=== PATIENT | male | born 1990 | race Caucasian/White ===

== ENCOUNTER → 2019-09-21 17:29 | Outpatient (CLI) | payer BC, SELFPAY ==
[2019-09-21 21:19] LABS: Semen Viscosity Stringy (Normal); Sperm Count 155 mil/mm3 (20-160); WBCs,Semen Negative
[2019-09-21 21:20] LABS: 3Hr Motility Quality Good Progression (Mod-Rapid); 3Hr Sperm Motility 60 % (50-60); Motility Quality Rapid Progression (Mod-Rapid); Sperm Morphology Normal (Normal); Sperm Motility 90 % (50-90)
== END ==
PROVIDERS: Visit Provider Obstetrics & Gynecology
DX: Z31.41 Encounter for fertility testing (principal)
CPT/HCPCS: 89320

== ENCOUNTER 2020-01-16 11:04 | Emergency (ER) | payer BC, SELFPAY ==
[2020-01-16 11:20] VITALS: BP 146/91; PULSE 93; RESP 20; TEMP 37.6; O2SAT 98; BMI 31.0
--- NOTE | 2020-01-16 11:40 | HMH.EDUTC ---
[facility] [place] Clinical Impression: Bronchitis Sinusitis Qualifiers: Sinusitis location: unspecified location Chronicity: acute Recurrence: non-recurrent Qualified Code(s): J01.90 - Acute sinusitis, unspecified Disposition: Home, Self-Care Condition on Discharge: Good Instructions: Sinusitis, DI for Sinusitis, Preventing the Spread of Coronavirus Discharge Instructions Additional Instructions: Drink plenty of fluids. Take tylenol for pain or fever. Take the medications as directed. Follow up with your regular doctor. GO TO THE ER FOR ANY WORSENING SYMPTOMS FOLLOW THE DIRECTIONS ON THE COVID-19 HAND OUT THAT WE GAVE YOU REGARDING SELF-ISOLATION UNTIL YOU KNOW YOUR COVID-19 RESULTS Prescriptions: Brompheniramine/Pseudoephed/Dm [Bromfed Dm Cough Syrup] 5 ml PO Q6HP PRN #240 syrup PRN Reason: Cough Transmission Status: Received by [facility] # Azithromycin [Z-Grayson 250mg Tab*] 250 mg PO UD DOSE PK #6 tab Transmission Status: Received by [facility] # Referrals: Filippo Young APRN [Primary Care Provider] - Forms: Work/School Release Time of Disposition: 12:10 Medical Decision Making - Medical Records Medical records reviewed: No: I reviewed the patient's medical records. - Raymundo Inquiry Pt receiving controlled substance: No Vital Signs: 01/16/20 11:20 01/16/20 12:12 Temperature 99.7 F H 99.7 F H Temperature Source Oral Pulse Rate 93 H Pulse Rate [Left Brachial] 93 H Respiratory Rate 20 20 Blood Pressure 146/91 H Blood Pressure [Left Arm] 146/91 H Blood Pressure Mean [Left Arm] 109 Blood Pressure Source [Left Arm] Automatic Cuff Blood Pressure Position [Left Arm] Sitting 02 Sat by Pulse Oximetry 98 Oxygen Delivery Method Room Air - Lab Data Lab Results 01/16/20 11:24: Influenza Type A Ag Negative, Influenza Type B Ag Negative 01/16/20 11:24: Strep Scn Rapid Clinic Negative Orders (Tests/Meds): ORDERS Category Date Time Status Strep Screen Confirmation Stat Micro 01/16/20 11:24 Received [facility] [place] H[place] - General Stated complaint: Sore throat, sinus congestion Time Seen by Provider: 01/16/20 11:40 Mode of Arrival: Ambulatory Source of Information: Patient Limitations: No Limitations Description of Symptoms (Recalled from Triage Doc. by RN): PATIENT C/O SORE THROAT, CONGESTION, WET COUGH, LOW-GRADE FEVER, AND NASAL DRAINAGE (YELLOW) X 2 DAYS HEENT Symptoms (Recalled from RN notes): Yes Resp Symptoms (Recalled from RN notes): Yes Skin Symptoms (Recalled from RN notes): No MS Symptoms (Recalled from RN notes): No Functional Status (Recalled from RN notes): WNL - History of Present Illness Provider Complaint: He c/o 2 days of cough and feeling bad. He state that last night he began to run a fever up to 100.6. He denies any known exposure to COVID-19. - Related Data Previous Rx's Medication Instructions Recorded naproxen 500 mg tablet 500 mg PO BID #60 tab 05/12/19 Azithromycin [Z-Grayson 250mg Tab*] 250 mg PO UD DOSE PK #6 tab 01/16/20 Brompheniramine/Pseudoephed/Dm 5 ml PO Q6HP PRN #240 syrup 01/16/20 [Bromfed Dm Cough Syrup] Allergies Allergy/AdvReac Type Severity Reaction Status Date / Time [facility] Allergy Verified 05/12/19 14:41 Penicillins Allergy Verified 05/12/19 14:41 Sulfa (Sulfonamide Allergy Verified 05/12/19 14:41 Antibiotics) - Worker's Comp Is this a Worker's Comp case?: No [facility] History - Hepatitis A Screen Drug use history?: No High risk sexual behaviors?: No History of sexually transmitted infection?: No Currently employed?: No Childcare worker?: No Do you have indoor plumbing?: Yes Do you have electricity?: Yes Attestation statement:: This patient has been screened for Hepatitis A risk factors. I have reviewed the patient's past medical history: Yes Comment: Kidney stones Other Surgeries: Yes: No Previous Surgery Amputation: No Fractures: No - Social H
[2020-01-16 12:12] VITALS: BP 146/91; PULSE 93; RESP 20; TEMP 37.6; O2SAT 98
--- NOTE | 2020-01-16 15:13 | PC.NURSE ---
PATIENT NOTIFIED OF POSITIVE COVID TEST AT THIS TIME
[2020-01-16 19:49] LABS: UTC Strep Screen (Rapid) Negative (Negative)
[2020-01-16 19:50] LABS: UTC Influenza A Antigen Negative (Negative)
[2020-01-16 19:51] LABS: UTC Influenza B Antigen Negative (Negative)
== END 2020-01-16 12:17 | disposition home or self-care (01) ==
LOC: UTC 11:06
PROVIDERS: Emergency Provider Nurse Practitioner Family; PCP Nurse Practitioner Family
DX: U07.1 COVID-19 (principal); J01.90 Acute sinusitis, unspecified; J20.9 Acute bronchitis, unspecified; Z88.0 Allergy status to penicillin; Z88.2 Allergy status to sulfonamides
CPT/HCPCS: 87804; 87880; 99202; U0003

== ENCOUNTER 2020-01-24 10:20 | Emergency (ER) | payer BC, SELFPAY ==
[2020-01-24 10:34] VITALS: BP 127/72; PULSE 90; RESP 14; TEMP 36.8; O2SAT 98; BMI 31.0
--- NOTE | 2020-01-24 11:00 | HMH.EDUTC ---
[facility] – [place] Disposition Clinical Impression: COVID-19 Disposition: Home, Self-Care Condition on Discharge: Good Instructions: Preventing the Spread of Coronavirus Discharge Instructions Additional Instructions: Drink plenty of fluids. Take tylenol for pain or fever. Follow up with your regular doctor. GO TO THE ER FOR ANY WORSENING SYMPTOMS FOLLOW THE DIRECTIONS ON THE COVID-19 HAND OUT THAT WE GAVE YOU REGARDING SELF-ISOLATION UNTIL YOU KNOW YOUR COVID-19 RESULTS Referrals: Filippo Young APRN [Primary Care Provider] - Time of Disposition: 11:05 Medical Decision Making - Medical Records Medical records reviewed: No: I reviewed the patient's medical records. - Raymundo Inquiry Pt receiving controlled substance: No Vital Signs: 01/24/20 10:34 01/24/20 11:56 Temperature 98.3 F 98.3 F Temperature Source Oral Oral Pulse Rate 90 Pulse Rate [Radial] 90 Respiratory Rate 14 14 Blood Pressure 127/72 Blood Pressure [Right Arm] 127/72 Blood Pressure Mean [Right Arm] 90 Blood Pressure Source Automatic Cuff Blood Pressure Source [Right Arm] Automatic Cuff Blood Pressure Position Sitting Blood Pressure Position [Right Arm] Sitting 02 Sat by Pulse Oximetry 98 Oxygen Delivery Method Room Air Room Air Orders (Tests/Meds): ORDERS Category Date Time Status Covid-19 Nasal PCR Sendout [place] Routine Lab 01/24/20 10:30 Received [facility] [place] HPI - General Stated complaint: covid test Time Seen by Provider: 01/24/20 11:03 Mode of Arrival: Ambulatory Source of Information: Patient Limitations: No Limitations Description of Symptoms (Recalled from Triage Doc. by RN): wants covid test HEENT Symptoms (Recalled from RN notes): No Resp Symptoms (Recalled from RN notes): No Skin Symptoms (Recalled from RN notes): No MS Symptoms (Recalled from RN notes): No Functional Status (Recalled from RN notes): wnl - History of Present Illness Provider Complaint: His work needs him to be retested for covid before he can return to work. He states that is has been sevaral days since he had any symptoms. He denies any concerns other than he needs a negative test. - Related Data Previous Rx's Medication Instructions Recorded naproxen 500 mg tablet 500 mg PO BID #60 tab 05/12/19 Azithromycin [Z-Grayson 250mg Tab*] 250 mg PO UD DOSE PK #6 tab 01/16/20 Brompheniramine/Pseudoephed/Dm 5 ml PO Q6HP PRN #240 syrup 01/16/20 [Bromfed Dm Cough Syrup] Allergies Allergy/AdvReac Type Severity Reaction Status Date / Time cefaclor [From Ceclor] Allergy Verified 05/12/19 14:41 Penicillins Allergy Verified 05/12/19 14:41 Sulfa (Sulfonamide Allergy Verified 05/12/19 14:41 Antibiotics) - Worker's Comp Is this a Worker's Comp case?: No [facility] History - Hepatitis A Screen Drug use history?: No High risk sexual behaviors?: No History of sexually transmitted infection?: No Currently employed?: No Childcare worker?: No Do you have indoor plumbing?: Yes Do you have electricity?: Yes Attestation statement:: This patient has been screened for Hepatitis A risk factors. I have reviewed the patient's past medical history: Yes Comment: Kidney stones Other Surgeries: Yes: No Previous Surgery Amputation: No Fractures: No - Social History Smoking Status: Never smoker Alcohol Intake: never Alcohol Intake Frequency:: holidays/special occasions only Substance Use Type: denies use Occupational Status: employed Housing: house Household Members: spouse Family Hx:: Non-contributory ROS Obtained: Yes All systems reviewed & no additional complaints - Constitutional Constitutional: Denies chills, Denies fever(s), Reports poor appetite, Reports malaise - Eyes Eyes: Denies eye discharge - ENT Ears, Nose, Mouth, and Throat: Reports as per HPI - Cardiovascular Cardiovascular: Denies chest pain - Respiratory Respiratory: Yes chest congestion, Yes cough Physical Exam - General General appearance: manuel
[2020-01-24 11:56] VITALS: BP 127/72; PULSE 90; RESP 14; TEMP 36.8; O2SAT 98
[2020-01-25 13:51] LABS: Covid-19 Nasal PCR Sendout Lex Not Detected
== END 2020-01-24 11:57 | disposition home or self-care (01) ==
PROVIDERS: Emergency Provider Nurse Practitioner Family; PCP Nurse Practitioner Family
DX: Z20.828 Contact with and (suspected) exposure to other viral communicable diseases (principal)
CPT/HCPCS: 99201; U0004

== ENCOUNTER 2020-04-17 09:25 | Emergency (ER) | payer BC, SELFPAY ==
[2020-04-17 09:30] VITALS: BP 145/79; PULSE 76; RESP 14; TEMP 36.3; O2SAT 100; BMI 31.7
--- NOTE | 2020-04-17 09:58 | HMH.EDUTC ---
[facility] [place] Clinical Impression: Exposure to COVID-19 virus Disposition: Home, Self-Care Condition on Discharge: Good Instructions: Preventing the Spread of Coronavirus Discharge Instructions Referrals: Willam Kelley MD [Primary Care Provider] - Forms: Work/School Release Time of Disposition: 10:07 Medical Decision Making - Medical Records Medical records reviewed: No: I reviewed the patient's medical records. - Raymundo Inquiry Pt receiving controlled substance: No Vital Signs: 04/17/20 09:30 04/17/20 10:16 Temperature 97.3 F L 97.3 F L Temperature Source Oral Pulse Rate 76 Pulse Rate [Right Brachial] 76 Respiratory Rate 14 14 Blood Pressure 145/79 H Blood Pressure [Right Arm] 145/79 H Blood Pressure Mean [Right Arm] 101 Blood Pressure Source [Right Arm] Automatic Cuff 02 Sat by Pulse Oximetry 100 Oxygen Delivery Method Room Air Orders (Tests/Meds): ORDERS Category Date Time Status Covid-19 Nasal PCR ([facility]) Routine Lab 04/17/20 09:45 Received [facility] [place] H[place] - General Stated complaint: covid exposure Time Seen by Provider: 04/17/20 09:58 Mode of Arrival: Ambulatory Source of Information: Patient Limitations: No Limitations Description of Symptoms (Recalled from Triage Doc. by RN): COVID TEST D/T EXPOSURE; DENIES SYMPTOMS HEENT Symptoms (Recalled from RN notes): No Resp Symptoms (Recalled from RN notes): No Skin Symptoms (Recalled from RN notes): No MS Symptoms (Recalled from RN notes): No Functional Status (Recalled from RN notes): WNL - History of Present Illness Provider Complaint: He states that he has been exposed to covid-19 around 3 days ago. He had a covid last summer, but he is afraid he will get it again and is is . He denies any symptoms. - Related Data Previous Rx's Medication Instructions Recorded naproxen 500 mg tablet 500 mg PO BID #60 tab 05/12/19 Azithromycin [Z-Grayson 250mg Tab*] 250 mg PO UD DOSE PK #6 tab 01/16/20 Brompheniramine/Pseudoephed/Dm 5 ml PO Q6HP PRN #240 syrup 01/16/20 [Bromfed Dm Cough Syrup] Allergies Allergy/AdvReac Type Severity Reaction Status Date / Time cefaclor [From Ceclor] Allergy Verified 05/12/19 14:41 Penicillins Allergy Verified 05/12/19 14:41 Sulfa (Sulfonamide Allergy Verified 05/12/19 14:41 Antibiotics) - Worker's Comp Is this a Worker's Comp case?: No [facility] History - Hepatitis A Screen Drug use history?: No High risk sexual behaviors?: No History of sexually transmitted infection?: No Currently employed?: No Childcare worker?: No Do you have indoor plumbing?: Yes Do you have electricity?: Yes Attestation statement:: This patient has been screened for Hepatitis A risk factors. I have reviewed the patient's past medical history: Yes Comment: Kidney stones Other Surgeries: Yes: No Previous Surgery Amputation: No Fractures: No - Social History Smoking Status: Never smoker Alcohol Intake: never Alcohol Intake Frequency:: holidays/special occasions only Substance Use Type: denies use Occupational Status: other Housing: house Household Members: spouse Family Hx:: Non-contributory ROS Obtained: Yes All systems reviewed & no additional complaints - Constitutional Constitutional: Reports system reviewed and no additional complaints, except as docu - Eyes Eyes: Reports system reviewed and no additional complaints, except as docu - ENT Ears, Nose, Mouth, and Throat: Reports system reviewed and no additional complaints, except as docu - Cardiovascular Cardiovascular: Reports system reviewed and no additional complaints, except as docu - Respiratory Respiratory: Reports system reviewed and no additional complaints, except as docu Physical Exam - General General appearance: alert, in no apparent distress - Head Head exam: atraumatic, normocephalic, normal inspection - Eye Eye exam: Present: normal appearance, PERRL, EOMI - ENT ENT exam: Present: normal exam, n
[2020-04-17 10:16] VITALS: BP 145/79; PULSE 76; RESP 14; TEMP 36.3; O2SAT 100
== END 2020-04-17 10:18 | disposition home or self-care (01) ==
PROVIDERS: Emergency Provider Nurse Practitioner Family; PCP Emergency Medicine
DX: Z20.822 Contact with and (suspected) exposure to COVID-19 (principal); Z88.0 Allergy status to penicillin; Z88.2 Allergy status to sulfonamides
CPT/HCPCS: 99202; G0463; U0003

== ENCOUNTER 2020-05-02 09:22 | Emergency (ER) | payer BC, SELFPAY ==
[2020-05-02 09:25] VITALS: BP 105/80; PULSE 78; RESP 14; TEMP 36.2; O2SAT 98; BMI 31.7
--- NOTE | 2020-05-02 09:43 | HMH.EDUTC ---
[facility] [place] Clinical Impression: Exposure to COVID-19 virus, Viral syndrome Disposition: Home, Self-Care Condition on Discharge: Good Instructions: Preventing the Spread of Coronavirus Discharge Instructions Additional Instructions: Drink plenty of fluids. Take tylenol for pain or fever. Return if you begin to have difficulty breathing. Follow up with your regular doctor. GO TO THE ER FOR ANY WORSENING SYMPTOMS Prescriptions: Ondansetron [Zofran 4mg ODT] 4 mg PO Q8HP PRN #12 tab.rapdis PRN Reason: Nausea Transmission Status: Received by [facility] Azithromycin [Z-Grayson 250mg Tab*] 250 mg PO UD DOSE PK #6 tab Transmission Status: Received by [facility] Referrals: Willam Kelley MD [Primary Care Provider] - Time of Disposition: 09:50 Medical Decision Making - Medical Records Medical records reviewed: No: I reviewed the patient's medical records. - Raymundo Inquiry Pt receiving controlled substance: No Vital Signs: 05/02/20 09:25 05/02/20 09:52 Temperature 97.2 F L 97.2 F L Temperature Source Oral Pulse Rate 78 Pulse Rate [Right Brachial] 78 Respiratory Rate 14 14 Blood Pressure 105/80 L Blood Pressure [Right Arm] 105/80 L Blood Pressure Mean [Right Arm] 88 Blood Pressure Source [Right Arm] Automatic Cuff Blood Pressure Position [Right Arm] Sitting 02 Sat by Pulse Oximetry 98 Oxygen Delivery Method Room Air Orders (Tests/Meds): ORDERS Category Date Time Status Covid-19 Nasal PCR Sendout [facility] Routine Lab 05/02/20 09:35 Received [facility] [place] HPI - General Stated complaint: covid test Time Seen by Provider: 05/02/20 09:43 - History of Present Illness Provider Complaint: He states that he has sinus congestion and a mild cough for the past 1 day. He had covid-19 in January of last year. He states that this does feel like covid started but he also gets sinus infections sometimes and this could be that. - Related Data Previous Rx's Medication Instructions Recorded naproxen 500 mg tablet 500 mg PO BID #60 tab 05/12/19 Azithromycin [Z-Grayson 250mg Tab*] 250 mg PO UD DOSE PK #6 tab 01/16/20 Brompheniramine/Pseudoephed/Dm 5 ml PO Q6HP PRN #240 syrup 01/16/20 [Bromfed Dm Cough Syrup] Azithromycin [Z-Grayson 250mg Tab*] 250 mg PO UD DOSE PK #6 tab 05/02/20 Ondansetron [Zofran 4mg ODT] 4 mg PO Q8HP PRN #12 tab.rapdis 05/02/20 Allergies Allergy/AdvReac Type Severity Reaction Status Date / Time cefaclor [From Ceclor] Allergy Verified 05/12/19 14:41 Penicillins Allergy Verified 05/12/19 14:41 Sulfa (Sulfonamide Allergy Verified 05/12/19 14:41 Antibiotics) [facility] History - Hepatitis A Screen Attestation statement:: This patient has been screened for Hepatitis A risk factors. I have reviewed the patient's past medical history: Yes Comment: Kidney stones Other Surgeries: Yes: No Previous Surgery Amputation: No Fractures: No - Social History Smoking Status: Never smoker Alcohol Intake: never Alcohol Intake Frequency:: holidays/special occasions only Substance Use Type: denies use Occupational Status: other Housing: house Household Members: spouse Family Hx:: Non-contributory ROS Obtained: Yes All systems reviewed & no additional complaints - Constitutional Constitutional: Reports system reviewed and no additional complaints, except as docu - Eyes Eyes: Reports system reviewed and no additional complaints, except as docu - ENT Ears, Nose, Mouth, and Throat: Reports system reviewed and no additional complaints, except as docu - Cardiovascular Cardiovascular: Reports system reviewed and no additional complaints, except as docu - Respiratory Respiratory: Reports system reviewed and no additional complaints, except as docu Physical Exam - General General appearance: alert, in no apparent distress - Head Head exam: atraumatic, normocephalic, normal inspection - Eye Eye exam: Present: normal appearance, PERR
[2020-05-02 09:52] VITALS: BP 105/80; PULSE 78; RESP 14; TEMP 36.2; O2SAT 98
[2020-05-03 11:01] LABS: Covid-19 Nasal PCR Sendout P&C Negative
== END 2020-05-02 09:54 | disposition home or self-care (01) ==
PROVIDERS: Emergency Provider Nurse Practitioner Family; PCP Emergency Medicine
DX: Z20.822 Contact with and (suspected) exposure to COVID-19 (principal); B34.9 Viral infection, unspecified; Z88.0 Allergy status to penicillin; Z88.5 Allergy status to narcotic agent
CPT/HCPCS: 99202; G0463; U0004

== ENCOUNTER 2021-01-29 00:59 | Emergency (ER) | payer BC, SELFPAY ==
[2021-01-29 01:00] VITALS: BP 152/98; PULSE 77; RESP 18; TEMP 37.2; O2SAT 99; BMI 29.5
[2021-01-29 01:30] VITALS: BP 131/86; PULSE 58; O2SAT 99
--- NOTE | 2021-01-29 01:32 | CT_ITS ---
PROCEDURE INFORMATION: Exam: CT Abdomen And Pelvis Without Contrast Exam date and time: 01/29/2021 1:32 AM Age: 30 years old Clinical indication: Abdominal pain; Flank; Right; Additional info: Kidney stone RT TECHNIQUE: Imaging protocol: Computed tomography of the abdomen and pelvis without contrast. Radiation optimization: All CT scans at this facility use at least one of these dose optimization techniques: automated exposure control; mA and/or kV adjustment per patient size (includes targeted exams where dose is matched to clinical indication); or iterative reconstruction. COMPARISON: CT ABDOMEN PELVIS WO CON 01/08/2019 10:41 AM FINDINGS: Lungs: 3 mm nodule within the right lower lobe, and appears stable in 2019 comparison. Lung bases are clear. Heart: The visualized heart is normal. No pericardial effusion. Liver: Sub 5 mm hypodensity within segment 4 is too small to further characterize. Otherwise the liver is unremarkable. Gallbladder and bile ducts: The gallbladder is unremarkable. No biliary ductal dilatation. Pancreas: The pancreas is unremarkable. Spleen: The spleen is unremarkable. Small splenule. Adrenal glands: The adrenal glands are normal. Kidneys and ureters: The kidneys have expected non-contrast appearance without hydronephrosis or stone. The ureters have normal course and caliber without stone. Stomach and bowel: The stomach is normal. The small bowel has normal course and caliber. The large bowel has normal course and caliber with scattered colonic diverticula. No significant pericolonic inflammation. Appendix: The appendix is normal. Intraperitoneal space: No significant peritoneal free fluid. No free peritoneal air. Vasculature: Unremarkable. No abdominal aortic aneurysm. Lymph nodes: No suspicious adenopathy by size criteria. Urinary bladder: 2 mm stone within the dependent portion of the bladder. Otherwise, the bladder is unremarkable. Reproductive: Unremarkable as visualized. Bones/joints: Unremarkable. No acute fracture. Soft tissues: Unremarkable. IMPRESSION: 1. 2 mm stone within the bladder. This stone is in a different location within the bladder in the similar finding on 2019 comparison. 2. Other findings as above.
[2021-01-29 01:39] LABS: Microscopic, Urine URINE MICROSCOPIC (MICROSCOPIC)
[2021-01-29 01:39] LABS: Basophils # 0.1 K/mm3 (0-0.2); Basophils % 1.3 % (0.1-2.0); Eosinophils # 0.3 K/mm3 (0.0-0.4); Eosinophils % 3.6 % (0.1-12.0); Hematocrit 45.9 % (42.0-52.0); Hemoglobin 15.2 g/dL (14.1-18.0); Lymphocytes # 2.5 K/mm3 (0.7-4.5); Lymphocytes % 30.8 % (10-50); Mean Corpuscular Hemoglobin 30.9 pg (27.0-31.2); Mean Corpuscular Volume 93.5 fl (80-94); Mean Platelet Volume 7.6 fl (7.4-10.4); Monocytes # 0.5 K/mm3 (0.1-1.0); Monocytes % 6.5 % (1.7-9.3); Neutrophils # 4.6 K/mm3 (1.8-7.8); Neutrophils % 57.7 % (37.0-80.0); Platelet Count 270 K/mm3 (142-424); Red Blood Count 4.91 M/mm3 (4.60-6.20); Red Cell Distribution Width 12.6 % (11.5-17.5)
[2021-01-29 01:41] LABS: Appearance,Urine CLEAR (Clear); Blood, Urine Negative (Negative); Color,Urine YELLOW (Yellow); Glucose,Urine (UA) Negative (Negative); Ketones,Urine 1+ (Negative); Leukocyte Esterase,Urine Negative (Negative); Nitrate,Urine Negative (Negative); Protein,Urine Negative (Negative); Specific Gravity, Urine >= 1.030 (1.005-1.030); Urobilinogen,Urine 0.2 EU/dl (0.2)
[2021-01-29 01:43] LABS: Alanine Aminotransferase 19 U/L (12-78); Albumin Level 4.7 g/dl (3.5-5.0); Albumin/Globulin Ratio 1.4 (1.1-1.8); Alkaline Phosphatase 86 U/L (38-126); Anion Gap 12.5 mEq/L (5-15); Aspartate Amino Transferase 36 U/L (17-59); Bilirubin,Total 0.9 mg/dl (0.2-1.3); Blood Urea Nitrogen 15 mg/dl (9-20); Calcium 9.3 mg/dl (8.4-10.2); Carbon Dioxide 28 mmol/L (22.0-30.0); Chloride 104 mmol/L (98-107); Creatinine Clearance Estimated 170 mL/min (50-200); Estimated Glomerular Filt Rate 112 ml/min (>60); GFR (African American) 136 ML/MIN (>60); Globulin 3.3 g/dL (1.3-3.2); Glucose 113 mg/dl (74-100); Potassium 3.5 mmoL/L (3.5-5.1); Sodium 141 mmol/L (136-145)
[2021-01-29 01:46] LABS: Bilirubin,Urine Negative (Negative); WBC,Urine Occasional #/hpf (0-3)
[2021-01-29 01:47] LABS: Amorphous Sediment,Urine Trace /lpf
[2021-01-29 02:30] VITALS: BP 125/83; PULSE 76; O2SAT 96
--- NOTE | 2021-01-29 03:14 | HMH.EDGENADL ---
ED Disposition Clinical Impression: Nephrolithiasis Disposition: Home, Self-Care Condition on Discharge: Good Referrals: Willam Kelley MD [Primary Care Provider] - - Critical Care Critical Care Time: No Attestation: On 01/29/21, the high probability of a clinically significant, sudden or life threatening deterioration of the following system(s) required my full and direct attention, intervention and personal management. The time I documented below is in addition to time spent performing reported procedures but includes the following listed in this critical care notation. Medical Decision Making - Medical Records Medical records reviewed: Yes: I reviewed the patient's medical records. - Raymundo Inquiry Pt receiving controlled substance: No Vital Signs: 01/29/21 01:00 01/29/21 01:30 01/29/21 02:30 Temperature 98.9 F Temperature Source Oral Pulse Rate 58 L 76 Pulse Rate [Right Brachial] 77 Respiratory Rate 18 Blood Pressure 131/86 125/83 Blood Pressure [Right Radial Artery] 152/98 H Blood Pressure Mean [Right Radial Artery] 116 Blood Pressure Source [Right Radial Artery] Automatic Cuff Blood Pressure Position [Right Radial Artery] Sitting 02 Sat by Pulse Oximetry 99 99 96 Oxygen Delivery Method Room Air - Lab Data Lab Results 01/29/21 01:04: Urine Color Yellow, Urine Appearance Clear, Urine pH 6.0, Ur Specific [place] >= 1.030, Urine Protein Negative, Urine Glucose (UA) Negative, Urine Ketones 1+, Urine Blood Negative, Urine Nitrate Negative, Urine Bilirubin Negative, Urine Urobilinogen 0.2, Ur Leukocyte Esterase Negative, Urine WBC Occasional, Amorphous Sediment Trace 01/29/21 01:16: WBC 8.0, RBC 4.91, Hgb 15.2, Hct 45.9, MCV 93.5, MCH 30.9, MCHC 33.0, RDW 12.6, Plt Count 270, MPV 7.6, Neut % (Auto) 57.7, Lymph % (Auto) 30.8, [place] % (Auto) 6.5, Eos % (Auto) 3.6, Baso % (Auto) 1.3, Neut # (Auto) 4.6, Lymph # (Auto) 2.5, [place] # (Auto) 0.5, Eos # (Auto) 0.3, Baso # (Auto) 0.1 01/29/21 01:16: Sodium 141, Potassium 3.5, Chloride 104, Carbon Dioxide 28, Anion Gap 12.5, BUN 15, Creatinine 0.80, Estimated Creat Clear 170, Estimated GFR 112, Est GFR ( Amer) 136, Glucose 113 H, Calcium 9.3, Total Bilirubin 0.9, AST 36, ALT 19, Alkaline Phosphatase 86, Total Protein 8.0, Albumin 4.7, Globulin 3.3 H, Albumin/Globulin Ratio 1.4 Result diagrams: 01/29/21 01:16 01/29/21 01:16 Orders (Tests/Meds): ED MEDICATIONS Discontinued Medications Generic Name Dose Route Start Last Admin Trade Name Freq PRN Reason Stop Dose Admin Ketorolac Tromethamine 30 mg 01/29/21 01:32 01/29/21 01:10 Ketorolac 30mg/Ml Vial IV 01/29/21 01:33 30 mg ONCE ONE Administration Morphine Sulfate 2 mg 01/29/21 01:32 01/29/21 01:37 Morphine 2mg/Ml Syringe IV 01/29/21 01:33 2 mg ONCE ONE Administration Ondansetron HCl 4 mg 01/29/21 01:32 01/29/21 01:10 Ondansetron 4mg/2ml Vial IV 01/29/21 01:33 4 mg ONCE ONE Administration Medical Decision Narrative: Patient is a 30-year-old male presents the ED today for right flank pain. Patient is well-appearing on initial evaluation in no acute distress with stable vital signs, will obtain CBC CMP urine and CT stone protocol. Pain treated with 30 mg of IV Toradol, 2 mg of IV morphine. Reassessed pain is improved, and incidentally patient has passed a kidney stone which is now the urinal, stone is black, has a history of calcium oxalate stones this is consistent with that. CT scan stone reviewed with evidence of stone in the urinary bladder at the time of imaging, patient with no evidence of hydronephrosis, no evidence of urinary tract infection, hepatic cyst the patient was informed of this. Patient given return precautions return to the ED with any new or worsening symptoms, given referral for urology, given these passed stone does not require any further pain medication at this time. General Adult HPI - General Chief compl
[2021-01-29 03:16] VITALS: BP 131/79; PULSE 79; RESP 18; TEMP 36.8; O2SAT 99
== END 2021-01-29 03:18 | disposition home or self-care (01) ==
PROVIDERS: Emergency Provider Student in an Organized Health Care Education/Training Program; PCP Emergency Medicine
DX: N20.0 Calculus of kidney (principal)
CPT/HCPCS: 74176; 80053; 81001; 85025; 96374; 96375; 99283; J2405

== ENCOUNTER 2025-03-02 03:28 | Emergency (ER) | payer BC, SELFPAY ==
--- OUTSIDE RECORDS SUMMARY | 2025-03-02 03:34 | XMS_ITS | Clinical Summary ---
Author Organization [facility] Address [address] [place] [address] Care Team Providers Care Scallop Binder Name Role Phone Ketan Mahmood MD Primary Care Provider [phone] Allergies Active Allergy Reactions Criticality Noted Date Comments Cefaclor Unknown - High Severity 08/19/2022 Penicillins Unknown - High Severity 08/19/2022 Sulfa Antibiotics Unknown - High Severity 08/19 Medications No known medications Social History Tobacco Use Types Packs/Day Years Used Date Smoking Tobacco: Never Smokeless Tobacco: Never Tobacco Cessation:Counseling Given: Not Answered Alcohol Use Standard Drinks/Week Comments Never 0 (1 standard drink = 0.6 oz pur e alcohol) Abuse Screen Answer Date Recorded Unsafe at Home or Work/School Not on file Feels Threatened by Someone? Not on file Does Anyone Keep You from Co ntacting Others or Doint Things Outside the Home? Not on file 01/17/2023 Physical Sign of Abuse Present Not on file 1 Housing Stability Answer Date Recorded Current Living Arrangements Not on file 01/05 Potentially Unsafe Housing Conditions Not on apple e 01/17/2023 Family and Community Support Answer Bobby e Recorded Help with Day-to-Day Activities Not on file 01/17/2023 Lonely or Isolated Not on file 01/17/2023 Employment Answer Date Recorded Do you want help finding or keeping work or a faiza b? Not on file 01/17/2023 Disabilities Answer Date Recorded Concentrating, Remembering, or Making Decisions Difficulty Not on file 01/17/2023 Doing Errands Independently Difficulty Not on fi le 01/17/2023 Education Answer Date Recorded Help with school or training? Not on file Preferred Language Not on file 01/17/2023 Sex and Gender Information Value Date Recorded Sex Assigned at Not on file Legal Sex Male 10:27 AM EDT Gender Identity Not on file Sexual Orientation Not on file Last Filed Vital Signs Vital Sign Reading Time Taken Comments Blood Pressure 124/78 08/19/2022 10:40 AM EDT Pulse 95 08/19/2022 10:40 AM EDT Temperature 36.7 C (98.1 F) 08/19/2022 10:40 AM EDT Respiratory Rate 16 08/19/2022 10:40 AM EDT Oxygen Saturation 98% 08/19/2022 10:40 AM EDT Inhaled Oxygen Concentration - - Weight 86.2 kg (190 lb) 09/23/2023 12:46 PM EDT Height 175.3 cm (5' 9 ) 09/23/2023 12:46 PM EDT Body Mass Index 28.06 09/23/2023 12:46 PM EDT Plan of Treatment Health Maintenance Due Date Last Done Comments ANNUAL PHYSICAL 1988 HEPATITIS C SCREENING 1988 TDAP/TD VACCINES (2 - Tdap) 10/21/2012 10/21/2002 INFLUENZA VACCINE 11/05/2024 Pneumococcal Vaccine 0-49 Aged Out No longer eligible based on patient's age to complete this topic Insurance PPO Member Subscriber Plan / Payer (Ef fective 2022-Present) Name:Everardo Kessler Relation to Subscriber:Self Name:Everardo Kessler Payer ID:[id number] (IC) Type:Not on file Address: [facility] [id number] [id number] Care Teams Scallop Binder Relationship Specialty Start Date End Date Ketan Mahmood MD [address] [id number] PCP - General Family Medicine 09/23/23
--- OUTSIDE RECORDS SUMMARY | 2025-03-02 03:34 | XMS_ITS | Clinical Summary ---
Author Organization [facility] Address [address] [place] [phone] Phone Care Team Providers Care Utilities Estimator And Drafter Name Role Phone Unavailable Primary Care Provider Unavailabl e Allergies Active Allergy Reactions Criticality Noted Date Comments Tamsulosin Hives High 01/23/2018 Penicillins Other (See Comments) High 11/07/2017 Pt states my whole body draws up Sulfa (Sulfonamide Antibiotics) Other (See Comments) High 11/07/2017 Unknown reaction Medications diphenhydrAMINE (BENADRYL) 50 mg Oral CapsuleIndicatio ns:allergic reaction Take by mouth 2 times daily as needed for Itching. Active predniSONE (DELTASONE) 10 mg Oral TabletIndication s:Contact dermatitis, unspecified contact dermatitis type, unspecified trigger Take Prednisone 10 mg 3 tabs x 3 days, take 2 tabs x 3 days, take 1 tab x 3 days. 18 Tab 8 Active escitalopram oxalate (LEXAPRO) 10 mg Oral TabletIndication s:Anxiety and depression Take 1 Tab by mouth daily. 30 Tab 2 8 Active terazosin (HYTRIN) 1 mg Oral CapsuleIndicatio ns:History of kidney stones TAKE 1 CAPSULE BY MOUTH EVERY DAY 30 Cap 1 8 Active Active Problems Problem Noted Date Diagnosed Date Dyslipidemia 01/06/2018 History of kidney stones 12/29/2017 Anxiety and depression 12/29/2017 Surgical History Surgery Date Site/Laterality Comments WISDOM TOOTH EXTRACTION HAND SURGERY 04/07/1998 - 04/06/1999 ORIF left wrist Medical History Medical History Date Comments Headache Neuromuscular disorder (HCC) Family History Medical History Relation Name Comments Depression Brother 2 Substance Abuse Brother 2 hep c Brother 2 black lung Father black lung Depression Mother Relation Name Status Comments Brother 1 Alive Brother 2 Alive Father Alive Maternal Grandfather Maternal Grandmother Alive Mother Alive Paternal Grandfather Alive Paternal Grandmother Alive Social History Tobacco Use Types Packs/Day Years Used Date Smoking Tobacco: Former Cigarettes Q uit: 12/30/2011 Smokeless Tobacco: Former Quit: 12/29/2013 Alcohol Use Standard Drinks/Week Comments Yes 5 (1 standard drink = 0.6 oz pur e alcohol) occ. PHQ-2 Answer Date Recorded PHQ-2 Score 2 08/27/2018 Sexually Active Control Partners Comments Yes Female Sex and Gender Information Value Date Recorded Sex Assigned at Not on file Legal Sex Male 9:24 AM EDT Gender Identity Not on file Sexual Orientation Not on file Last Filed Vital Signs Vital Sign Reading Time Taken Comments Blood Pressure 150/90 02/23/2018 1:11 PM EST Pulse 98 02/23/2018 1:11 PM EST Temperature 36.7 C (98 F) 02/23/2018 1:11 PM EST Respiratory Rate 20 02/23/2018 1:11 PM EST Oxygen Saturation 98% 02/23/2018 1:11 PM EST Inhaled Oxygen Concentration - - Weight 91.6 kg (202 lb) 02/23/2018 1:11 PM EST Height 175.3 cm (5' 9 ) 02/23/2018 1:11 PM EST Body Mass Index 29.83 02/23/2018 1:11 PM EST Plan of Treatment Health Maintenance Due Date Last Done Comments DTaP/TDaP/Td (1 - Tdap) 2007 Hepatitis B Vaccine (1 of 3 - 19+ 3-dose series) 2007 Annual Wellness Exam 12/29/2018 12/29/2017 COVID-19 Vaccine (2024-2 6 season) 2024 Influenza Vaccine (#1) 2024 Meningococcal B Vaccine Aged Out No l onger eligible based on patient's age to complete this topic Pneumococcal Vaccine 0-49 Aged Out No longer eligible based on patient's age to complete this topic Goals Goal Patient Goal Type Associated Problems Recent Progress Patient-Stated? Author Maintain a healthy diet, exercise regularly and maintain an ideal body weight General No Thea Hood APRN Stay Tobacco Free Lifestyle No Thea Hood APRN Insurance
[2025-03-02 03:38] VITALS: BP 143/102; PULSE 71; RESP 16; TEMP 36.8; O2SAT 100; BMI 29.5
--- NOTE | 2025-03-02 03:40 | CT_ITS ---
PROCEDURE INFORMATION: Exam: CT Abdomen And Pelvis With Contrast Exam date and time: 03/02/2025 4:19 AM Age: 34 years old Clinical indication: Abdominal pain; Flank; Right; Additional info: R flank pain, HX stones TECHNIQUE: Imaging protocol: Computed tomography of the abdomen and pelvis with contrast. Radiation optimization: All CT scans at this facility use at least one of these dose optimization techniques: automated exposure control; mA and/or kV adjustment per patient size (includes targeted exams where dose is matched to clinical indication); or iterative reconstruction. Contrast material: ISOVUE; Contrast volume: 75 ml; Contrast route: IV; COMPARISON: CT ABDOMEN PELVIS WO CON 01/29/2021 1:50 AM FINDINGS: Liver: Normal. No mass. Gallbladder and biliary ducts: Normal. No calcified stones. No ductal dilation. Pancreas: Normal. No ductal dilation. Spleen: Normal. No splenomegaly. Adrenal glands: Normal. No mass. Kidneys and ureters: 4 mm stone at the right UVJ with mild to moderate right-sided hydroureter and hydronephrosis. No intrarenal stones are identified bilaterally. Stomach and bowel: Unremarkable. No obstruction. No mucosal thickening. Appendix: No evidence of appendicitis. Intraperitoneal space: Unremarkable. No free air. No significant fluid collection. Vasculature: Unremarkable. No abdominal aortic aneurysm. Lymph nodes: Unremarkable. No enlarged lymph nodes. Urinary bladder: Unremarkable as visualized. Reproductive: Unremarkable as visualized. Bones/joints: Unremarkable. No acute fracture. Soft tissues: Unremarkable. IMPRESSION: 4 mm stone at the right UVJ with mild to moderate right-sided hydroureter and hydronephrosis. No intrarenal stones are identified bilaterally.
[2025-03-02] MEDS: MORPHINE 4MG/ML SYRINGE 4 MG IV (03:48)
[2025-03-02] MEDS: ACETAMINOPHEN 500MG TAB 1000 MG PO (03:48)
[2025-03-02] MEDS: KETOROLAC 30MG/ML VIAL 30 MG IV (03:48)
[2025-03-02] MEDS: ONDANSETRON 4MG/2ML VIAL 4 MG IV ×2 (03:48→04:38)
[2025-03-02 03:49] LABS: Microscopic, Urine URINE MICROSCOPIC (MICROSCOPIC)
[2025-03-02 03:50] LABS: Hematocrit 46.0 % (42.0-52.0); Hemoglobin 16.2 g/dL (14.1-18.0); Immature Granulocytes % 0.1 %; Mean Corpuscular HGB Conc 35.2 g/dL (31.8-35.4); Mean Corpuscular Hemoglobin 30.6 pg (27.0-31.2); Mean Corpuscular Volume 87.0 fl (80-94); Nucleated Red Blood Cells % 0 %; Platelet Count 224 K/mm3 (142-424); Red Blood Count 5.29 M/mm3 (4.60-6.20); Red Cell Distribution Width-SD 37.2 fL; White Blood Count 6.7 K/mm3 (4.8-10.8)
--- NOTE | 2025-03-02 03:55 | ED_ITS ---
Discharge Plan Disposition Patient Disposition: Home, Self-Care Prescriptions Prescriptions: New oxycodone 5 mg tablet 5 mg PO Q8H PRN (Reason: pain) Qty: 12 0RF ondansetron HCl 4 mg tablet 4 mg PO Q8H PRN (Reason: nausea and vomiting) 5 Days Qty: 30 0RF No Action naproxen 500 mg tablet 500 mg PO BID Qty: 60 0RF azithromycin 250 MG tablet 250 mg PO UD DOSE PK Qty: 6 0RF Rx Instructions: Take two (2) tablets today, then one (1) tablet days #2 thru #5 ondansetron 4 MG tablet,disintegrating 4 mg PO Q8HP PRN (Reason: Nausea) Qty: 12 0RF azithromycin 250 MG tablet 250 mg PO UD DOSE PK Qty: 6 0RF Rx Instructions: Take two (2) tablets today, then one (1) tablet days #2 thru #5 uwwicxijngrdtxz-ujgknrjzc-OS 118 ML syrup 5 ml PO Q6HP PRN (Reason: Cough) Qty: 240 0RF Referrals Follow up/Referrals: Ketan Mahmood MD [Primary Care Provider, Medical] - See instructions Activity Restrictions/Add. Instructions Additional Instructions/Restrictions: Please take Tylenol ibuprofen and use oxycodone as needed for pain. Take Zofran as needed for nausea and vomiting. Please follow-up with your primary care provider. Please return to the emergency department if you develop any new or worsening symptoms or become concerned for your health. Clinical Impressions Clinical Impression: Right ureteral calculus Instructions Patient Instructions: DI for Acute Abdominal Pain Print Language Print Language: Austrian Discharge ED Provider: Nigel Cherry General Adult HPI General Chief complaint: Abdominal Pain Stated complaint: lower R back pain Time Seen by Provider: 03/02/25 03:30 Mode of Arrival: Ambulatory Source of Information: Patient Description of Symptoms (Recalled from ER Triage Doc. by RN): Pt reports right side flank pain that started approx 2 hours [employer]. Pt rate pain 8/10 and denies N/V at this time. Pt reports hx of kidney stones. History of Present Illness HPI narrative: 34-year-old male with history of kidney stones presents for a few hours of right flank pain. He reports he feels like the last time he had a kidney stone. No fever, no urinary symptoms. He did have a blood clot last year and was on anticoagulation for some time but is not currently on anticoagulation. Related Data Previous Rx's ?Medication ?Instructions ?Recorded naproxen 500 mg tablet 500 mg PO BID #60 tabs 05/12 azithromycin 250 mg tablet 250 mg PO UD DOSE PK #6 tab s 01/16/20 bkizmimbgnwnukj-yqrjgromarpoemf-BF 5 ml PO Q6HP PRN Co ugh ##240 01/16/20 2 mg-30 mg-10 mg/5 mL oral syrup azithromycin 250 mg tablet 250 mg PO UD DOSE PK #6 tab s 05/02/20 ondansetron 4 mg disintegrating 4 mg PO Q8HP PRN Nause a ##12 05/02/20 tablet ondansetron HCl 4 mg tablet 4 mg PO Q8H PRN nausea and 03/02/25 vomiting 5 days #30 tabs oxycodone 5 mg tablet 5 mg PO Q8H PRN pain #12 tab s 03/02/25 Allergies Allergy/AdvReac Type Severity Reaction Status Date / Time tamsulosin Allergy Unknown Verified 03/02/25 04:32 cefaclor (From Ceclor) Allergy Verified 05/12/23 13:58 Penicillins Allergy Verified 05/12/23 13:58 Sulfa (Sulfonamide Allergy Verified 05/12/23 13:58 Antibiotics) [facility] Disclaimer: The information contained in this section may have been updated after the patient was seen, as this information can be updated by other users. Social History Smoking Status: Never smoker alcohol intake: never substance use type: denies use current occupational status: other Travel in the last 8 weeks?: None household members: spouse housing: house Have you lived/traveled outside US in past 30 days?: No Contact w/someone who lives/traveled outside US past 30 days?: No Exposure to someone with infectious disease in past 14 days?: No Do you have a fever (greater than 100.4 F or 38 C)?: No Have you tested positive for COVID-19?: No Exposed to someone with COVID-19 in past 14 days?: No Do you have a sore throat?: No Do you have a cough?: No Do you have any weakness?: No Do you have any diarrhea?: No Are you experiencing any unusual bleeding?: No Do you have any muscle aches/pain?: No Do you have any abdominal pain?: No Are you experiencing loss of taste or smell?: No Other Medical History Have you received the Flu Vaccine for this season: No Have you received the Pneumonia Vaccine: No ROS Obtained: Yes All systems reviewed & no additional complaints except as documented Physical Exam General General appearance: alert and in no apparent distress Head Head exam: atraumatic and normocephalic Eye Eye exam: Present normal appearance, PERRL and EOMI ENT ENT exam: Present normal oropharynx and normal external ear exam Neck Neck exam: Present normal inspection and full ROM Chest Chest inspection: Present normal inspection and symmetric chest wall rise; Absent tenderness Respiratory Respiratory exam: Present normal lung sounds bilaterally; Absent respiratory distress Cardiovascular Cardiovascular exam: Present regular rate and normal rhythm Abdominal Exam Abdominal exam: Present soft; Absent distention, tenderness or guarding Extremities Exam Extremities exam: Present normal inspection; Absent edema or joint swelling Back Exam Back exam: Present normal inspection; Absent tenderness Neurological Exam Neurological exam: Present alert and oriented X3; Absent motor sensory deficit Psychiatric Psychiatric exam: Present normal affect and normal mood Skin Skin exam: Present warm, dry and normal color Lymphatic Lymphatic Findings: no adenopathy Medical Decision Making Medical Records Medical records reviewed: Yes I reviewed the patient's medical records. Screening: Per USPSTF and CDC recommendations, given the prevalence of disease in our region, it is our hospital?s policy to screen for HIV and viral Hepatitis for all patients aged 18 and over and those with ongoing risk factors. Raymundo Inquiry Pt receiving controlled substance: No Raymundo was queried for this patient: No Vital Signs: 03/02/25 03:38 03/02/25 04:33 Temperature 98.2 F Temperature Source Oral Pulse Rate 78 Pulse Rate [Left] 71 Respiratory Rate 16 16 Blood Pressure 140/97 H Blood Pressure [Right Arm] 143/102 H Blood Pressure Mean 109 Blood Pressure Mean [Right Arm] 115 Blood Pressure Source [Right Arm] Automatic Cuff Blood Pressure Position [Right Arm] Sitting 02 Sat by Pulse Oximetry 100 96 Oxygen Delivery Method Room Air Lab Data Lab results reviewed: Yes I reviewed the patient's lab results. Lab Results 03/02/25 03:35: Urine Color Yellow, Urine Appearance Clear, Urine pH 6.0, Ur Specific [place] 1.025, Urine Protein Negative, Urine Glucose (UA) Negative, Urine Ketones Negative, Urine Blood Negative, Urine Nitrate Negative, Urine Bilirubin Negative, Urine Urobilinogen 0.2, Ur Leukocyte Esterase Negative, Ur Squamous Epith Cells 3-5, Urine Mucus Trace 03/02/25 03:43: WBC 6.7, RBC 5.29, Hgb 16.2, Hct 46.0, MCV 87.0, MCH 30.6, MCHC 35.2, RDW 11.6, Plt Count 224, MPV 9.2, Neut % (Auto) 55.3, Lymph % (Auto) 31.2, [place] % (Auto) 9.6 H, Eos % (Auto) 3.1, Baso % (Auto) 0.7, Neut # (Auto) 3.7, Lymph # (Auto) 2.1, [place] # (Auto) 0.6, Eos # (Auto) 0.2, Baso # (Auto) 0.1, Sodium 141, Potassium 3.9, Chloride 98, Carbon Dioxide 32 H, Anion Gap 14.9, BUN 15, Creatinine 1.00, Estimated Creat Clear 131, Estimated GFR 85, Est GFR ( Amer) 102, Glucose 125 H, Calcium 9.3, Total Bilirubin 1.4 H, AST 36, ALT 31, Alkaline Phosphatase 73, Total Protein 8.3 H, Albumin 4.9, Globulin 3.4 H, Albumin/Globulin Ratio 1.4 03/02/25 03:43 03/02/25 03:43 Orders (Tests/Meds): ED MEDICATIONS Generic Name Dose Route Start Last Admin Trade Name Freq PRN Reason Stop Dose Admin Tamsulosin HCl 0.4 mg 03/02/25 21:00 Tamsulosin 0.4mg Capsule PO 04/01/25 20:59 HS JANIE Discontinued Medications Generic Name Dose Route Start Last Admin Trade Name Freq PRN Reason Stop Dose Admin Acetaminophen 1,000 mg 03/02/25 03:40 03/02/25 03:48 Acetaminophen 500mg Tab PO 03/02/25 03:41 1,000 mg ONCE ONE Administration Hydromorphone HCl 0.5 mg 03/02/25 04:24 03/02/25 04:34 Hydromorphone 2mg/Ml Syringe IV 03/02/25 04:25 0.5 mg ONCE ONE Administration Iopamidol 75 ml 03/02/25 04:25 03/02/25 04:27 Iopamidol-370 (76%);100ml Bottle IV 03/02/25 04:26 75 ml ONCE ONE Administration Ketorolac Tromethamine 30 mg 03/02/25 03:40 03/02/25 03:48 Ketorolac 30mg/Ml Vial IV 03/02/25 03:41 30 mg ONCE ONE Administration Morphine Sulfate 4 mg 03/02/25 03:40 03/02/25 03:48 Morphine 4mg/Ml Syringe IV 03/02/25 03:41 4 mg ONCE ONE Administration Ondansetron HCl 4 mg 03/02/25 03:40 03/02/25 03:48 Ondansetron 4mg/2ml Vial IV 03/02/25 03:41 4 mg ONCE ONE Administration Ondansetron HCl 4 mg 03/02/25 04:29 03/02/25 04:38 Ondansetron 4mg/2ml Vial IV 03/02/25 04:30 4 mg ONCE ONE Administration Sodium Chloride 10 ml 03/02/25 04:25 03/02/25 04:26 Sodium Chloride 0.9% 10ml Syr (Rad Only) IV 03/02/25 04:26 10 ml ONCE ONE Administration ORDERS Category Date Time Status CT abdomen pelvis w con Stat Cat Scan 03/02/25 03:40 Completed CBC w/Auto Diff [Complete Blood Count Auto Diff] Stat Lab 03/02/25 03:43 Completed CMP [Comprehensive Metabolic Panel] Stat Lab 03/02/25 03:43 Completed UA [Urinalysis and Microscopic] Stat Lab 03/02/25 03:35 Completed Medical Decision Narrative: 34-year-old male history of kidney stone presents for right flank pain for a few. History was obtained via interactive discussion with patient. On arrival, patient is [afebrile, hemodynamically stable, satting appropriately, alert, oriented x4, GCS 15], moving all extremities spontaneously. Full physical exam performed and significant for right flank pain Differential includes but is not limited to kidney stone, pyelonephritis, UTI. Patient was given Tylenol Toradol Zofran morphine for symptomatic management and correction of underlying abnormalities. Workup initiated including basic labs, urinalysis, CT of the abdomen pelvis. On re-evaluation, patient continues to have pain, given Dilaudid and Zofran Laboratory workup independently interpreted by me and significant for no evidence of UTI, renal function stable. Imaging independently interpreted by me and significant for 4 mm distal UVJ stone on the right with hydro. See radiology read for full review of final results. Given patient history, exam and workup, patient's presentation most likely represents obstructing UVJ stone with right-sided hydronephrosis and hydroureter. Given his size, likely passed on its own. Patient reports allergy to tamsulosin. He was discharged with prescription for oxycodone for breakthrough pain as well as Zofran for nausea and vomiting. Discharged in stable condition. Return precautions given. Procedures Risk/Benefits of Procedure(s) Were Explained: Yes Critical Care Critical Care Time Critical Care Time: No
[2025-03-02 04:01] LABS: Bilirubin,Urine Negative (Negative); Color,Urine YELLOW (Yellow); Glucose,Urine (UA) Negative (Negative); Ketones,Urine Negative (Negative); Leukocyte Esterase,Urine Negative (Negative); PH,Urine 6.0 (5.0-8.5); Protein,Urine Negative (Negative); Specific Gravity, Urine 1.025 (1.005-1.030); Urobilinogen,Urine 0.2 EU/dl (0.2)
[2025-03-02 04:05] LABS: Albumin Level 4.9 g/dl (3.5-5.0); Chloride 98 mmol/L (98-107); Potassium 3.9 mmoL/L (3.5-5.1); Sodium 141 mmol/L (136-145)
[2025-03-02 04:07] LABS: Blood Urea Nitrogen 15 mg/dl (9-20); Creatinine Clearance Estimated 131 mL/min (50-200); Creatinine,Serum 1.00 mg/dl (0.66-1.25); Estimated Glomerular Filt Rate 85 ml/min (>60); GFR (African American) 102 ML/MIN (>60)
[2025-03-02 04:08] LABS: Alanine Aminotransferase 31 U/L (12-78); Albumin/Globulin Ratio 1.4 (1.1-1.8); Alkaline Phosphatase 73 U/L (38-126); Anion Gap 14.9 mEq/L (5-15); Aspartate Amino Transferase 36 U/L (17-59); Bilirubin,Total 1.4 mg/dl (0.2-1.3); Calcium 9.3 mg/dl (8.4-10.2); Carbon Dioxide 32 mmol/L (22.0-30.0); Globulin 3.4 g/dL (1.3-3.2); Glucose 125 mg/dl (74-100); Total Protein,Serum 8.3 g/dl (6.3-8.2)
[2025-03-02 04:17] LABS: Mucus,Urine Trace /lpf
[2025-03-02] MEDS: SODIUM CHLORIDE 0.9% 10ML SYR (RAD ONLY) 10 ML IV (04:26)
[2025-03-02] MEDS: IOPAMIDOL-370 (76%);100ML BOTTLE 75 ML IV (04:27)
[2025-03-02 04:33] VITALS: BP 140/97; PULSE 78; RESP 16; O2SAT 96
[2025-03-02] MEDS: HYDROMORPHONE 2MG/ML SYRINGE 0.5 MG IV (04:34)
[2025-03-02 05:11] VITALS: BP 147/99; PULSE 78; RESP 14; TEMP 37.1; O2SAT 97
== END 2025-03-02 05:18 | disposition home or self-care (01) ==
PROVIDERS: Emergency Provider Emergency Medicine; PCP Family Medicine
DX: N13.2 Hydronephrosis with renal and ureteral calculous obstruction (principal); Z87.442 Personal history of urinary calculi; Z88.1 Allergy status to other antibiotic agents; Z88.2 Allergy status to sulfonamides; Z88.0 Allergy status to penicillin; Z88.8 Allergy status to other drugs, medicaments and biological substances
CPT/HCPCS: 74177; 80053; 81001; 85025; 96374; 96375; 96376; 99285; J1171; J1885; J2270; J2405; Q9967